=== PATIENT | male | born 1990 | race Caucasian/White ===

== ENCOUNTER → 2019-10-04 15:43 | Outpatient (CLI) | payer OTHER, SELFPAY ==
--- NOTE | 2019-10-04 | DI.CT.S_ITS ---
PROCEDURE: CT SINUS SCREEN WO CON INDICATIONS: Other chronic sinusitis TECHNIQUE: Noncontrast 3.0 mm axial images acquired from the frontal sinuses to the mid-sella, with coronal and sagittal reformats. For radiation dose reduction, the following was used: automated exposure control, adjustment of mA and/or kV according to patient size. COMPARISON: None. FINDINGS: Image quality: Excellent. Maxillary Sinuses: No bony remodeling or destruction. Mucous retention cyst is seen within the inferior left maxillary sinus. Ethmoid Air Cells: No bony remodeling or destruction. Sinuses are clear. Sphenoid Sinuses: No bony remodeling or destruction. There is a mucous retention cyst seen within the anterior right sphenoid sinus. Frontal Sinuses: No bony remodeling or destruction. Sinuses are clear. Ostiomeatal Complexes: Ostiomeatal complexes are patent, yet they are constitutionally narrowed. No Vicenta cells. Miscellaneous: Visualized intra-orbital contents are normal. 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 There is moderate leftward nasal septal deviation. IMPRESSION: No significant active paranasal sinus disease is seen. Scattered mucous retention cysts are noted. Constitutionally narrowed ostiomeatal complexes. Right-sided lyudmila bullosa. Moderate leftward nasal septal deviation. Dictated by: See Almeida M.D. on 10/04/2019 at 15:04 Approved by: See Almeida M.D. on 10/04/2019 at 15:06
== END ==
PROVIDERS: PCP Family Medicine; Visit Provider Otolaryngology
DX: J32.8 Other chronic sinusitis (principal); J34.3 Hypertrophy of nasal turbinates; J34.2 Deviated nasal septum; J34.1 Cyst and mucocele of nose and nasal sinus
CPT/HCPCS: 70486

== ENCOUNTER → 2021-05-26 09:51 | Outpatient (CLI) | payer OTHER, SELFPAY ==
[2021-05-26 10:33] LABS: COVID19 -Nasal RAPID POSITIVE (Negative)
== END ==
PROVIDERS: PCP Family Medicine; Referring Provider Nurse Practitioner Family; Visit Provider Nurse Practitioner Family
DX: U07.1 COVID-19 (principal)
CPT/HCPCS: 87635